=== PATIENT | female | born 1970 | race African-American/Black ===

== ENCOUNTER 2021-11-19 12:13 | Emergency (ER) | payer BC, OTHER ==
[~2021-11-19] VITALS: Ht 152.4 cm; Wt 83.9 kg
[2021-11-19] MEDS ORDERED: GLUMETZA1000 MG PO (12:45)
[2021-11-19] MEDS ORDERED: HYZAAR 100-251 EACH PO (12:46)
[2021-11-19] MEDS ORDERED: LIPITOR40 MG PO (12:47)
== END 2021-11-19 17:08 | disposition home or self-care (01) ==
LOC: ER 12:13
DX: R50.9 Fever, unspecified (principal)